=== PATIENT | female | born 1985 | race Caucasian/White ===

== ENCOUNTER 2021-07-13 15:59 | Emergency (ER) | payer OTHER ==
[~2021-07-13] VITALS: Ht 162.6 cm; Wt 77.1 kg
[~2021-07-13 15:59] MED LIST: CLEOCIN HCL300 MG PO; IBUPROFEN600 MG PO; Viscous Lidocaine2% TOP
[2021-07-13] MEDS ORDERED: CLINDAMYCIN HC150 MG PO (19:44)
== END 2021-07-13 21:45 | disposition home or self-care (01) ==
LOC: ER1 15:59
DX: U07.1 COVID-19 (principal); Z23 Encounter for immunization; K04.7 Periapical abscess without sinus; K02.9 Dental caries, unspecified; F17.210 Nicotine dependence, cigarettes, uncomplicated; Z88.0 Allergy status to penicillin
CPT/HCPCS: 96374; 99283; M0245